=== PATIENT | male | born 1990 | race Caucasian/White ===

== ENCOUNTER 2018-05-01 15:34 | Outpatient (CLI) | payer OTHER ==
--- NOTE | 2018-05-01 16:07 | XRAY Report ---
Procedure Date: 05/01/2018 Accession Number: [id number] / [id number] Procedure: XR - Ankle 3 View LT CPT Code: FULL RESULT: EXAM: Ankle 3 View LT DATE: 05/01/2018 3:44 PM CLINICAL HISTORY: L ANKLE PAIN COMPARISON: None. TECHNIQUE: 3 views. FINDINGS: Bones: Normal. No fractures or bone lesions. Os trigonum. Joints: Normal. No tibiotalar joint effusion. No subluxations. Soft Tissues: There is soft tissue swelling about the ankle. IMPRESSION: Soft tissue swelling with radiographically preserved ankle mortise and no fracture. [facility]
== END 2018-05-01 15:35 | disposition home or self-care (01) ==
LOC: DI 15:34
PROVIDERS: ATTEND Physician Assistant
DX: M25.572 Pain in left ankle and joints of left foot (principal)

== ENCOUNTER 2018-05-02 14:33 | Outpatient (CLI) | payer OTHER ==
--- NOTE | 2018-05-02 15:07 | XRAY Report ---
Procedure Date: 05/02/2018 Accession Number: [id number] / [id number] Procedure: XR - Foot 3 View LT CPT Code: FULL RESULT: EXAM: LEFT FOOT RADIOGRAPHY EXAM DATE: 05/02/2018 02:45 PM. CLINICAL HISTORY: LT FOOT PAIN,RUN OVER BY FORK LIFT. COMPARISON: Radiographs of the left ankle from 05/01/2018. TECHNIQUE: 3 views. FINDINGS: Bones: Normal. No fractures or bone lesions. Joints: Normal alignment. Mild degenerative changes of the left talonavicular joint. No dislocation. Soft Tissues: No radiopaque foreign bodies. Soft tissue edema. IMPRESSION: 1. No acute osseous abnormalities. Findings discussed with Dr. Mix following the study at 1504 hrs. On 05/02/2018. [facility]
== END 2018-05-02 14:34 | disposition home or self-care (01) ==
LOC: DI 14:33
PROVIDERS: ATTEND Physician Assistant
DX: M79.672 Pain in left foot (principal); S90.32XA Contusion of left foot, initial encounter